=== PATIENT | male | born 1970 | race Caucasian/White ===

== ENCOUNTER 2016-04-03 01:59 | Emergency (ER) | payer OTHER ==
[~2016-04-03] VITALS: Ht 165.1 cm; Wt 87.1 kg
[2016-04-03 02:30] VITALS: BP 143/88
[2016-04-03] MEDS ORDERED: FAMOTIDINE 20 MG/2 ML VIAL IVP ONE (03:15)
[2016-04-03] MEDS ORDERED: IV NORMAL SALINE 1000ML BAG 1,000 ML IV ONE (03:15)
[2016-04-03] MEDS ORDERED: DIPHENHYDRAMINE 50 MG/ML VIAL IVP ONE (03:15)
[2016-04-03] MEDS ORDERED: DEXAMETHASONE SOD PHOS 20 MG/5 ML VIAL. IV ONE (03:15)
[2016-04-03] MEDS ORDERED: METH4TAB2 PO (04:24)
--- NOTE | 2016-04-03 04:25 | PHYS DOC ---
Past Medical History Past Medical History: No Pertinent History Past Surgical History: Other Additional Past Surgical Histo: COMPARTMENT SYNDROME SX BILAT LEGS 2007 Alcohol Use: None Drug Use: None Adult General Chief Complaint Chief Complaint: ALLERGIC REACTION HPI HPI 45-year-old male presents this evening stating he felt like the back of his throat was swollen. He is not had any new foods or medications. He denies any fever chills or sweats. He is not had any neck pain.] Review of Systems Review of Systems Constitutional: Denies fever or chills [] Eyes: Denies change in visual acuity, redness, or eye pain [] HENT: Denies nasal congestion or sore throat [] Respiratory: Denies cough or shortness of breath [] Cardiovascular: No additional information not addressed in HPI [] GI: Denies abdominal pain, nausea, vomiting, bloody stools or diarrhea [] : Denies dysuria or hematuria [] Musculoskeletal: Denies back pain or joint pain [] Integument: Denies rash or skin lesions [] Neurologic: Denies headache, focal weakness or sensory changes [] Endocrine: Denies polyuria or polydipsia [] Current Medications Current Medications Current Medications Medications (Trade) Dose Ordered Sig/Sisi Start Time Stop Time Status Last Admin Dose Admin Dexamethasone Sodium Phosphate (Decadron) 10 mg 1X ONCE 04/03/16 03:15 04/03/16 03:16 DC 04/03/16 03:29 10 MG Diphenhydramine HCl (Benadryl) 25 mg 1X ONCE 04/03/16 03:15 04/03/16 03:16 DC 04/03/16 03:29 25 MG Famotidine (Pepcid) 20 mg 1X ONCE 04/03/16 03:15 04/03/16 03:16 DC 04/03/16 03:28 20 MG Sodium Chloride (Iv Sodium Chloride 0.9% 1000ml Bag) 1,000 ml @ 1,000 mls/hr 1X ONCE 04/03/16 03:15 04/03/16 04:14 DC 04/03/16 03:15 1,000 MLS/HR Allergies Allergies Allergies Coded Allergies Type Severity Reaction Last Updated Verified No Known Drug Allergies 04/03/16 No Physical Exam Physical Exam Constitutional: Well developed, well nourished, no acute distress, non-toxic appearance. [] HENT: Normocephalic, atraumatic, bilateral external ears normal, posterior pharynx is slightly erythematous with a mildly swollen uvula. There is no tongue or lip swelling. No trismus. [] Eyes: PERRLA, EOMI, conjunctiva normal, no discharge. [] Neck: Normal range of motion, no tenderness, supple, no stridor. [] Cardiovascular:Heart rate regular rhythm, no murmur [] Lungs & Thorax: Bilateral breath sounds clear to auscultation [] Abdomen: Bowel sounds normal, soft, no tenderness, no masses, no pulsatile masses. [] Skin: Warm, dry, no erythema, no rash. [] Back: No tenderness, no CVA tenderness. [] Extremities: No tenderness, no cyanosis, no clubbing, ROM intact, no edema. [] Neurologic: Alert and oriented X 3, normal motor function, normal sensory function, no focal deficits noted. [] Psychologic: Affect normal, judgement normal, mood normal. [] Current Patient Data Vital Signs Vital Signs Date Time Temp Pulse Resp B/P Pulse Ox O2 Delivery O2 Flow Rate FiO2 04/03/16 02:30 98.1 75 20 143/88 96 Room Air 98.1 EKG EKG [] Radiology/Procedures Radiology/Procedures [] Course & Med Decision Making Course & Med Decision Making Pertinent Labs and Imaging studies reviewed. (See chart for details) [ED course: Evaluation reveals 45-year-old male with mildly swollen uvula. He was given Decadron, Benadryl and Pepcid with nearly complete resolution of the swelling of in his posterior pharynx. I will give the patient steroids to take at home. I was very clear with him that he needed take Benadryl 25 mmol every 4- 6 hours. Is also to return should any worsening occur.] Dragon Disclaimer Dragon Disclaimer This electronic medical record was generated, in whole or in part, using a voice recognition dictation system. Departure Departure Impression: Primary Impression: Uvular swelling Disposition: 01 HOME, SELF-CARE Condition: STABLE Referrals: NGUYỄN CRUZ (PCP) Patient Instructions: Angioedema Additional Instructions: Take Benadryl 25 mg every 4-6 hours until complete resolution of the symptoms has been obtained. Follow with your family doctor this week for recheck. Return to the emergency department with any new or concerning symptoms Scripts Methylprednisolone (Medrol)4 Mg Tab.ds.pk1 Pkg PO UD ALLERGIES #1 PKG Prov:CHRIS BERRY DO 04/03/16 CHRIS BERRY DO Apr 03, 2016 04:25
[2016-04-03 08:38] LABS: NEGATIVE OBC STREP NEG; POSITIVE OBC STREP POS
== END 2016-04-03 04:33 | disposition home or self-care (01) ==
LOC: ER 01:59
DX: K13.79 Other lesions of oral mucosa (principal)
CPT/HCPCS: 87070; 87880; 96361; 96374; 96375; 99284; J1100; J1200; J7030; S0028